=== PATIENT | male | born 1985 | race Hispanic/Latino ===

== ENCOUNTER 2024-12-23 07:31 | Day surgery (SDC) | payer BC ==
[2024-12-23] MEDS: Ringers Lactate 1,000 ML IV ONE (07:55)
[2024-12-23] MEDS ORDERED: MIDAZOLAM HCL 2 MG/2 ML INJ ONE (08:51)
[2024-12-23] MEDS ORDERED: ROCURONIUM 50 MG/5 ML VIAL IV ONE (08:51)
[2024-12-23] MEDS ORDERED: LIDOCAINE 2% MPF 5 ML VIAL ONE ×2 (08:51→10:49)
[2024-12-23] MEDS ORDERED: propofoL 200 MG/20 ML VIAL IV ONE (08:51)
[2024-12-23] MEDS ORDERED: ONDANSETRON 4 MG/2 ML VIAL ONE (08:51)
[2024-12-23] MEDS ORDERED: FENTANYL CITR 100 MCG/2 ML ONE ×3 (08:51→11:14)
[2024-12-23] MEDS ORDERED: dexAMETHasone 10 MG/ML VIAL ONE (08:52)
[2024-12-23] MEDS: BUPIVACAINE 0.5% PF 10 ML VIAL ONE (09:46)
[2024-12-23] MEDS ORDERED: EPINEPHRINE 1 MG/ML VIAL ONE ×3 (10:27→11:13)
[2024-12-23] MEDS ORDERED: TRANEXAMIC ACID 1,000 MG/10 ML VIAL IV ONE (10:28)
[2024-12-23] MEDS ORDERED: Ringers Lactate 1,000 ML IV ONE (11:19)
--- NOTE | 2024-12-23 11:46 | P.OP ---
Date of Service: 12/23/24 Preoperative diagnosis: [Tonsil hypertrophy,] [Chronic tonsillitis] Postoperative diagnosis: [Same] Procedure: Tonsillectomy Surgeon: Kristina Ng MD Network Architect Manager: None Anesthesia: General via endotracheal tube IV fluids: See anesthesia record Estimated blood loss: 15 mL Specimen: [bilateral tonsils] Findings: Severely inflamed and enlarged and scarred tonsils Implants: None Indication: patient with persistent symptoms and findings in spite of good medical management. Details of operation: The patient was brought to the operating room and placed under general anesthesia via oral endotracheal tube. The head of bed was turned 90 degrees. A shoulder roll was placed and the neck was extended. A head drape was applied. The McIvor mouthgag was placed and suspended from the Renteria stand. The oxygen concentration was confirmed with the anesthesiologist and was less than 40%. Weight-based dexamethasone was administered by the anesthesiologist. The soft palate was palpated and there was no submucous cleft. A red rubber catheter was placed in the nose and the tip withdrawn through the mouth and secured to the head drape for retraction of the soft palate. The tonsils were noted to be large and chronically inflamed with multiple crypts. The left tonsil was grasped with a straight Allis clamp. The Bovie electrocautery was used to incise the mucosa over the anterior pillar and identified the tonsillar capsule. The tonsil was dissected using cautery and blunt dissection until free from soft tissue attachments. A tonsil ball was placed to aid in hemostasis. The right tonsil was removed in a similar manner. Both tonsils showed evidence of scarring which was worse on the right superior tonsil but generally the tonsils were chronically inflamed with evidence of hypervascularity. Multiple vessels required clamping and tying with Vicryl Endoloop including a vessel in the right lateral tonsillar fossa, left superior and mid portion of the tonsillar fossa. The oropharynx was irrigated with cold saline. After suctioning, a [place] sump orogastric tube was passed for decompression of the stomach. The red rubber catheter was removed and used to suction the oropharynx, nasopharynx, and nasal cavities. The McIvor mouthgag was removed. There was no evidence of injury to the teeth, lips, or tongue. The mandible was mobile. The patient was then awakened from anesthesia and extubated in the operating room, taken to the recovery room in stable condition. Disposition: The patient will be discharged home later today in the care of their family with written postoperative instructions and appropriate pain medications. They will follow-up in Dr. Ng's office in approximately 1 month. They are instructed to contact Dr. Ng's office for any bleeding or other concerns.
[2024-12-23] MEDS: FENTANYL CITR 100 MCG/2 ML ONE (11:59)
[2024-12-23] MEDS: HYDROMORPHONE HCL 1 MG/ML INJ ONE ×2 (12:05→12:30)
[2024-12-23] MEDS: MEPERIDINE HCL 25 MG/ML SYR ONE (12:15)
[2024-12-23] MEDS: PROMETHAZINE INJ 25 MG/ML AMP ONE (12:22)
[2024-12-23] MEDS: LIDOCAINE 4% TOP SOLUTION ONE (12:45)
[2024-12-23 13:26] VITALS: BP 146/82; TEMP 97.3; O2SAT 95
[2024-12-23] MEDS: HYDROCOD 2.5mg-ACETAMIN 108mg/5mL Soln ONE (14:05)
== END 2024-12-23 14:44 | disposition home or self-care (01) ==
LOC: OR 07:31
PROVIDERS: ATTEND Otolaryngology
PROC: 0CTPXZZ Resection of Tonsils, External Approach (ICD-10-PCS; principal; 2024-12-23 09:30)
DX: J35.01 Chronic tonsillitis (principal)
CPT/HCPCS: 88304; 42826; J2550; J2704; J2003 ×2; J2250; J3010 ×4; J1100; J2175; J0171 ×3; J1171 ×2; J2405; J7120 ×2